=== PATIENT | female | born 2000 | race African-American/Black ===

== ENCOUNTER 2020-04-22 18:23 | Emergency (ER) | payer OTHER ==
[2020-04-22 18:40] VITALS: BP 159/113
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
== END 2020-04-22 19:07 | disposition home or self-care (01) ==
LOC: ER 18:23
DX: S16.1XXA Strain of muscle, fascia and tendon at neck level, initial encounter (principal); M54.2 Cervicalgia; V89.2XXA Person injured in unspecified motor-vehicle accident, traffic, initial encounter
CPT/HCPCS: 99283